=== PATIENT | male | born 1950 | race Caucasian/White ===

== ENCOUNTER 2020-09-28 16:45 | Emergency (ER) | payer MEDICARE ==
[~2020-09-28] VITALS: Ht 182.9 cm; Wt 81.6 kg
[2020-09-28 16:56] VITALS: BP_SYST 95
[2020-09-28 16:59] VITALS: BP_SYST 95
== END 2020-09-28 16:55 | disposition left against medical advice (07) ==
LOC: SED 16:45
DX: S81.811A Laceration without foreign body, right lower leg, initial encounter (principal); W18.39XA Other fall on same level, initial encounter; Y93.89 Activity, other specified; Y92.89 Other specified places as the place of occurrence of the external cause; Y99.8 Other external cause status
CPT/HCPCS: 99283